=== PATIENT | female | born 1985 | race Caucasian/White ===

== ENCOUNTER 2018-10-02 10:15 | Emergency (ER) | payer BC ==
[2018-10-02] MEDS ORDERED: Sodium Chloride 0.9% 10 ML Syringe FLUSH PRN (10:22)
[2018-10-02] MEDS ORDERED: Sodium Chloride 0.9% 1,000 ML IV SCH ×2 (10:30→11:00)
[2018-10-02] MEDS ORDERED: LORazepam 2 MG/ML SDV IVPUSH ONE (10:46)
[2018-10-02 11:39] LABS: CHLORIDE,CL 103 mmol/L (98-107); SODIUM,NA 140 mmol/L (136-145)
--- NOTE | 2018-10-02 11:58 | EDM.PDOC ---
ED HPI GENERAL MEDICAL PROBLEM - General Chief Complaint: General Stated Complaint: lightheaded, faint, dizziness Time Seen by Provider: 10/02/18 10:40 Source of Information: Reports: Patient History Limitations: Reports: No Limitations - History of Present Illness INITIAL COMMENTS - FREE TEXT/NARRATIVE: Patient is a 33-year-old who is seen in the ER with anxiety lightheadedness near syncopal episode this started earlier today while at work with no apparent cause was brought in by friend for evaluation and treatment Onset: Today Duration: Hour(s):, Getting Worse Location: Reports: Generalized Severity: Mild Improves with: Reports: Medication Worsens with: Reports: None Context: Reports: Other (Exam) Associated Symptoms: Reports: No Other Symptoms 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: Other Medication(s) Other Treatments FOOD SERVICE REPRESENTATIVE: Ativan - Related Data Allergies Allergy/AdvReac Type Severity Reaction Status Date / Time No Known Allergies Allergy Verified 10/02/18 10:19 Home Meds: Home Meds Dextroamphetamine/Amphetamine [Adderall 20 mg Tablet] 1 tab PO DAILY 10/02/18 [ History] LORazepam [Ativan] 0.25 mg PO Q6HR PRN 10/02/18 [History] Sertraline [Zoloft] 50 mg PO DAILY 10/02/18 [History] 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: Psychiatric History: Reports: ADD, Depression - Past Surgical History HEENT Surgical History: Reports: Other (See Below) Other HEENT Surgeries/Procedures: [place] teeth removal GI Surgical History: Reports: Appendectomy Social & Family History - Caffeine Use Caffeine Use: Reports: Energy Drinks Caffeine Use Comment: had 1 energy drink today at 2:00pm ED ROS GENERAL - Review of Systems Review Of Systems: See Below Constitutional: Reports: No Symptoms HEENT: Reports: No Symptoms Respiratory: Reports: No Symptoms Cardiovascular: Reports: No Symptoms Endocrine: Reports: No Symptoms GI/Abdominal: Reports: No Symptoms : Reports: No Symptoms Musculoskeletal: Reports: No Symptoms Skin: Reports: No Symptoms Neurological: Reports: No Symptoms Psychiatric: Reports: No Symptoms Hematologic/Lymphatic: Reports: No Symptoms Immunologic: Reports: No Symptoms ED EXAM, GENERAL - Physical Exam Exam: See Below Exam Limited By: No Limitations General Appearance: Alert, WD/WN, Moderate Distress Ears: Normal External Exam, Normal Canal, Hearing Grossly Normal, Normal TMs Nose: Normal Inspection, Normal Mucosa, No Blood Throat/Mouth: Normal Inspection, Normal Lips, Normal Teeth, Normal Gums, Normal Oropharynx, Normal Voice, No Airway Compromise Head: Atraumatic, Normocephalic Neck: Normal Inspection, Supple, Non-Tender, Full Range of Motion Respiratory/Chest: No Respiratory Distress, Lungs Clear, Normal Breath Sounds, No Accessory Muscle Use, Chest Non-Tender Cardiovascular: Tachycardia GI/Abdominal: Normal Bowel Sounds, Soft, Non-Tender, No Organomegaly, No Distention, No Abnormal Bruit, No Mass (Female) Exam: Deferred Rectal (Female) Exam: Deferred Back Exam: Normal Inspection, Full Range of Motion, NT Extremities: Normal Inspection, Normal Range of Motion, Non-Tender, Normal Capillary Refill, No Pedal Edema Neurological: Alert, Oriented, CN II-XII Intact, Normal Cognition, Normal Gait, Normal Reflexes, No Motor/Sensory Deficits Psychiatric: Anxious Skin Exam: Warm, Dry, Intact, Normal Color, No Rash Lymphatic: No Adenopathy Course - Vital Signs Last Recorded V/S: Last Vital Signs Temp 97.8 F 10/02/18 10:15 Pulse 95 10/02/18 11:15 Resp 18 10/02/18 11:15 BP 126/82 10/02/18 11:15 Pulse Ox 100 10/02/18 11:15 - Orders/Labs/Meds Orders: Active Orders 24 hr Category Date Time Status Peripheral IV Care [RC] . DIRECTED Care 10/02/18 10:22 Active ABG [BLOOD GAS ARTERIAL] [BG] Stat Lab 10/02/18 10:53 Ordered Sodium Chloride 0.9% @ 150 MLS/HR (1000ml) Med 10/02/18 11:00 Ordered Sodium Chloride 0.9% [Normal Saline] 1,000 ml IV ASDIRECTED Sodium Chloride 0.9% [Normal Saline] 1,000 ml Med 10/02/18 10:30 Active IV ASDIRECTED Sodium Chloride 0.9% [Saline Flush] Med 10/02/18 10:22 Active 10 ml FLUSH ASDIRECTED PRN Peripheral IV Insertion Adult [OM.PC] Routine Oth 10/02/18 10:22 Ordered Medication Orders Sodium Chloride (Normal Saline) 1,000 mls @ 999 mls/hr IV ASDIRECTED JAIRO Last Admin: 07/20/19 10:32 Dose: 999 mls/hr Sodium Chloride (Normal Saline) 1,000 mls @ 150 mls/hr IV ASDIRECTED JAIRO Sodium Chloride (Saline Flush) 10 ml FLUSH ASDIRECTED PRN PRN Reason: Keep Vein Open Last Admin: 10/02/18 10:51 Dose: 10 ml Labs: Laboratory Tests 10/02/18 10/02/18 10/02/18 Range/Units 10:56 11:05 11:05 WBC 9.4 (4.0-10.2) K/uL RBC 4.59 (3.77-5.09) M/uL Hgb 14.3 (11.7-15.5) g/dL Hct 42.2 (34.0-46.0) % MCV 91.9 (84.0-98.0) fL MCH 31.2 (28.2-33.3) pg MCHC 33.9 (31.7-36.0) g/dL RDW 13.4 (11.2-14.1) % Plt Count 325 (150-350) K/uL Neut % (Auto) 76.6 (45.0-80.0) % Lymph % (Auto) 15.3 (10.0-50.0) % [place] % (Auto) 7.7 (2.0-14.0) % Eos % (Auto) 0.2 (0.0-5.0) % Baso % (Auto) 0.2 (0.0-2.0) % Neut # (Auto) 7.21 H (1.40-7.00) K/uL Lymph # (Auto) 1.44 (0.50-3.50) K/uL [place] # (Auto) 0.73 (0.00-1.00) K/uL Eos # (Auto) 0.02 (0.00-0.50) K/uL Baso # (Auto) 0.02 (0.00-0.20) K/uL Sodium 140 (136-145) mmol/L Potassium 3.5 (3.5-5.1) mmol/L Chloride 103 (98-107) mmol/L Carbon Dioxide 25.7 (21.0-32.0) mmol/L BUN 15 (7-18) mg/dL Creatinine 0.71 (0.51-1.17) mg/dL Est Cr Clr Drug Dosing TNP Estimated GFR (MDRD) > 60 mL/min Glucose 104 (74-106) mg/dL Calcium 9.8 (8.5-10.1) mg/dL Total Bilirubin 0.3 (0.2-1.0) mg/dL AST 19 (15-37) U/L ALT 30 (12-78) U/L Alkaline Phosphatase 59 (46-116) IU/L Total Protein 7.6 (6.4-8.2) g/dL Albumin 4.1 (3.4-5.0) g/dL TSH, Ultra Sensitive (0.358-3.740) mIU/mL Specimen Type Urinvoid Urine Color Light yellow Urine Appearance Clear Urine pH 7.0 (5.0-9.0) Ur Specific [place] <= 1.005 (1.005-1.030) Urine Protein Negative (NEGATIVE) mg/dL Urine Glucose (UA) Negative (NEGATIVE) mg/dL Urine Ketones Negative (NEGATIVE) mg/dL Urine Occult Blood Trace-intact H (NEGATIVE) Urine Nitrite Negative (NEGATIVE) Urine Bilirubin Negative (NEGATIVE) Urine Urobilinogen 0.2 (0.2-1.0) E.U./dL Ur Leukocyte Esterase Negative (NEGATIVE) Urine RBC 0-5 /HPF Urine WBC 0-5 /HPF Ur Epithelial Cells Few /LPF Urine Bacteria Rare (NONE TO FEW) /HPF 10/02/18 Range/Units 11:05 WBC (4.0-10.2) K/uL RBC (3.77-5.09) M/uL Hgb (11.7-15.5) g/dL Hct (34.0-46.0) % MCV (84.0-98.0) fL MCH (28.2-33.3) pg MCHC (31.7-36.0) g/dL RDW (11.2-14.1) % Plt Count (150-350) K/uL Neut % (Auto) (45.0-80.0) % Lymph % (Auto) (10.0-50.0) % [place] % (Auto) (2.0-14.0) % Eos % (Auto) (0.0-5.0) % Baso % (Auto) (0.0-2.0) % Neut # (Auto) (1.40-7.00) K/uL Lymph # (Auto) (0.50-3.50) K/uL [place] # (Auto) (0.00-1.00) K/uL Eos # (Auto) (0.00-0.50) K/uL Baso # (Auto) (0.00-0.20) K/uL Sodium (136-145) mmol/L Potassium (3.5-5.1) mmol/L Chloride (98-107) mmol/L Carbon Dioxide (21.0-32.0) mmol/L BUN (7-18) mg/dL Creatinine (0.51-1.17) mg/dL Est Cr Clr Drug Dosing Estimated GFR (MDRD) mL/min Glucose (74-106) mg/dL Calcium (8.5-10.1) mg/dL Total Bilirubin (0.2-1.0) mg/dL AST (15-37) U/L ALT (12-78) U/L Alkaline Phosphatase (46-116) IU/L Total Protein (6.4-8.2) g/dL Albumin (3.4-5.0) g/dL TSH, Ultra Sensitive 3.221 (0.358-3.740) mIU/mL Specimen Type Urine Color Urine Appearance Urine pH (5.0-9.0) Ur Specific [place] (1.005-1.030) Urine Protein (NEGATIVE) mg/dL Urine Glucose (UA) (NEGATIVE) mg/dL Urine Ketones (NEGATIVE) mg/dL Urine Occult Blood (NEGATIVE) Urine Nitrite (NEGATIVE) Urine Bilirubin (NEGATIVE) Urine Urobilinogen (0.2-1.0) E.U./dL Ur Leukocyte Esterase (NEGATIVE) Urine RBC /HPF Urine WBC /HPF Ur Epithelial Cells /LPF Urine Bacteria (NONE TO FEW) /HPF Meds: Medications Generic Name Dose Route Start Last Admin Trade Name Freq PRN Reason Stop Dose Admin Sodium Chloride 1,000 mls @ 999 mls/hr 10/02/18 10:30 10/02/18 10:32 Normal Saline IV 999 mls/hr ASDIRECTED JAIRO Administration Sodium Chloride 1,000 mls @ 150 mls/hr 10/02/18 11:00 Normal Saline IV ASDIRECTED JAIRO Sodium Chloride 10 ml 10/02/18 10:22 10/02/18 10:51 Saline Flush FLUSH 10 ml ASDIRECTED PRN Administration Keep Vein Open Discontinued Medications Generic Name Dose Route Start Last Admin Trade Name Priyank PRN Reason Stop Dose Admin Lorazepam 1 mg 10/02/18 10:46 10/02/18 10:50 Ativan IVPUSH 10/02/18 10:47 1 mg ONETIME ONE Administration Departure - Departure Time of Disposition: 11:54 Disposition: Home, Self-Care 01 Condition: Good Clinical Impression: Anxiety and depression - Discharge Information *PRESCRIPTION DRUG MONITORING PROGRAM REVIEWED*: No *COPY OF PRESCRIPTION DRUG MONITORING REPORT IN PATIENT ASHLEY: No Referrals: Nu Goddard BRIDGE ENGINEER [Primary Care Provider] - Care Plan Goals: Patient is seen at this time she was lightheaded and near syncopal episodes crying appeared very anxious she has history of anxiety/depression she's been on Zoloft 50 mg for about 7-8 months and takes Ativan had order a milligram when necessary at this time I felt that she was having an anxiety attack a placed her on a rebreathing her CO2 then after a few minutes her pulse came down heart rate came down we went ahead and gave her 1 mg of Ativan which helped her tremendously at this time I feel that we need to go up on her Zoloft 200 mg and increase her Ativan to half a milligrams to 1 mg by mouth when necessary please send a copy of this to Nu - My Orders Last 24 Hours: My Active Orders 10/02/18 10:22 Peripheral IV Care [RC] . DIRECTED Sodium Chloride 0.9% [Saline Flush] 10 ml FLUSH ASDIRECTED PRN Peripheral IV Insertion Adult [OM.PC] Routine 10/02/18 10:30 Sodium Chloride 0.9% [Normal Saline] 1,000 ml IV ASDIRECTED 10/02/18 10:53 ABG [BLOOD GAS ARTERIAL] [BG] Stat 10/02/18 11:00 Sodium Chloride 0.9% @ 150 MLS/HR (1000ml) Sodium Chloride 0.9% [Normal Saline] 1,000 ml IV ASDIRECTED - Assessment/Plan Last 24 Hours: My Active Orders 10/02/18 10:22 Peripheral IV Care [RC] . DIRECTED Sodium Chloride 0.9% [Saline Flush] 10 ml FLUSH ASDIRECTED PRN Peripheral IV Insertion Adult [OM.PC] Routine 10/02/18 10:30 Sodium Chloride 0.9% [Normal Saline] 1,000 ml IV ASDIRECTED 10/02/18 10:53 ABG [BLOOD GAS ARTERIAL] [BG] Stat 10/02/18 11:00 Sodium Chloride 0.9% @ 150 MLS/HR (1000ml) Sodium Chloride 0.9% [Normal Saline] 1,000 ml IV ASDIRECTED
== END 2018-10-02 12:20 | disposition home or self-care (01) ==
LOC: LL.ED 10:15
DX: F41.9 Anxiety disorder, unspecified (principal); F32.9 Major depressive disorder, single episode, unspecified
CPT/HCPCS: 36415; 80053; 81001; 84443; 85025; 96361; 96374; 99285; J2060; J7030

== ENCOUNTER 2019-08-21 13:23 | Emergency (ER) | payer BC ==
[2019-08-21 13:50] VITALS: BP 127/83; PULSE 86
--- NOTE | 2019-08-21 13:52 | EDM.PDOC ---
ED HPI GENERAL MEDICAL PROBLEM - General Chief Complaint: General Stated Complaint: anxiety Time Seen by Provider: 08/21/19 13:30 Source of Information: Reports: Patient History Limitations: Reports: No Limitations - History of Present Illness INITIAL COMMENTS - FREE TEXT/NARRATIVE: She presents to the emergency department complaining of a panic attack. She states her heart is been racing, her blood pressures have been high and she feels like she is going to . She does report some tightness in her chest earlier, although that is also improving. Her symptoms started about 2 hours ago. She did take a Xanax at home and feels things have improved. She has a history of panic attacks in the past. Last significant attack was 11 months ago. She does take Klonopin daily and Xanax as needed. 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 She denies any more acute or specific trigger today. 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 Denies: Wheezing, Cough Cardiovascular: Reports: Other (Rapid heart rate). Denies: Chest Pain, Palpitations Endocrine: Reports: No Symptoms GI/Abdominal: Denies: Abdominal Pain, Nausea, Vomiting : Denies: Dysuria, Frequency, Urgency Neurological: Denies: Confusion, Dizziness, Headache, Numbness, Seizure, Syncope , Trouble Speaking Psychiatric: Reports: Anxiety ED EXAM, GENERAL - Physical Exam Exam: See Below Exam Limited By: No Limitations General Appearance: Alert, WD/WN Ears: Normal External Exam, Normal Canal, Hearing Grossly Normal, Normal TMs Nose: Normal Inspection, Normal Mucosa Throat/Mouth: Normal Inspection, Normal Teeth, Normal Gums, Normal Oropharynx, Normal Voice Head: Atraumatic, Normocephalic Neck: Normal Inspection, Non-Tender. No: Lymphadenopathy (L), Lymphadenopathy ( R) Respiratory/Chest: No Respiratory Distress, Lungs Clear, Normal Breath Sounds, No Accessory Muscle Use, Respiratory Distress Cardiovascular: Normal Peripheral Pulses, Regular Rate, Rhythm, No Edema, No Murmur Neurological: Alert, Oriented, CN II-XII Intact, Normal Cognition Skin Exam: Warm, Dry Course - Vital Signs Last Recorded V/S: Last Vital Signs Temp 36.8 C 08/21/19 13:36 Pulse 93 08/21/19 13:36 Resp 22 H 08/21/19 13:36 BP 144/81 H 08/21/19 13:36 Pulse Ox 99 08/21/19 13:36 Departure - Departure Time of Disposition: 13:50 Disposition: Home, Self-Care 01 Clinical Impression: Panic attack, Anxiety - Discharge Information *PRESCRIPTION DRUG MONITORING PROGRAM REVIEWED*: Not Applicable *COPY OF PRESCRIPTION DRUG MONITORING REPORT IN PATIENT ASHLEY: Not Applicable Instructions: Panic Attack, [id number] Referrals: Nu Goddard NP [Primary Care Provider] - Forms: ED Department Discharge, ED Return to Work/School Form Additional Instructions: Patient is reassured that she does appear to be having a panic attack and there is no life-threatening condition. While in the emergency department she was feeling much better. She will take another Xanax when she goes home. Follow-up as needed. Sepsis Event Note - Evaluation Sepsis Screening Result: No Definite Risk - Focused Exam Vital Signs: Vital Signs Temp Pulse Resp BP Pulse Ox 08/21/19 13:36 36.8 C 93 22 H 144/81 H 99 Date Exam was Performed: 08/21/19 Time Exam was Performed: 13:47
== END 2019-08-21 14:05 | disposition home or self-care (01) ==
LOC: LL.ED 13:23
DX: F41.0 Panic disorder [episodic paroxysmal anxiety] (principal); F32.9 Major depressive disorder, single episode, unspecified; F98.8 Other specified behavioral and emotional disorders with onset usually occurring in childhood and adolescence; Z79.899 Other long term (current) drug therapy
CPT/HCPCS: 99283

== ENCOUNTER 2020-07-21 11:17 | Emergency (ER) | payer BC ==
[2020-07-21] MEDS ORDERED: LORazepam 2 MG/ML SDV IVPUSH ONE (11:42)
[2020-07-21] MEDS ORDERED: Sodium Chloride 0.9% 10 ML Syringe FLUSH PRN (11:43)
[2020-07-21 12:12] LABS: CHLORIDE,CL 102 mmol/L (98-107); SODIUM,NA 140 mmol/L (136-145)
--- NOTE | 2020-07-21 12:25 | EDM.PDOC ---
ED HPI GENERAL MEDICAL PROBLEM - General Chief Complaint: Neurological Problem Stated Complaint: left dilated pupil Time Seen by Provider: 07/21/20 11:40 Source of Information: Reports: Patient History Limitations: Reports: No Limitations - History of Present Illness INITIAL COMMENTS - FREE TEXT/NARRATIVE: Patient comes to ER to be evaluated after noticing that her left pupil was widened compared to right. No vision change. No history of similar issues in past. Has history of chronic anxiety and panic disorder. Is feeling very anxious since noticing the pupil size difference. Had mild tingling of left arm at one point after noticing eye issue. No focal weakness/other focal neuro complaints. Did take two Midol tabs earlier today for menstrual cramping but has taken that before without issue. Has had a few cups of coffee, also not unusual for her. No other acute changes noted. No history of migraines/atypical migraines. No other drug/chemical exposure. 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 Denies: Dental Pain, Ear Discharge, Ear Pain, Eye Discharge, Eye Pain, Nose Pain, Rhinitis, Sinus Problem, Throat Pain, Throat Swelling, Vertigo, Vision Change Respiratory: Reports: No Symptoms Cardiovascular: Reports: No Symptoms Endocrine: Reports: No Symptoms GI/Abdominal: Reports: No Symptoms : Reports: No Symptoms Musculoskeletal: Reports: No Symptoms Skin: Reports: No Symptoms Neurological: Reports: Other (tingling left arm/shoulder) Psychiatric: Reports: Anxiety Hematologic/Lymphatic: Reports: No Symptoms Immunologic: Reports: No Symptoms ED EXAM, GENERAL - Physical Exam Exam: See Below Exam Limited By: No Limitations General Appearance: Alert, Anxious Eye Exam: Bilateral Eye: EOMI, Other (Both pupils minimally reactive to light, left pupil fully blown, right pupil 6mm) Ears: Normal External Exam, Hearing Grossly Normal Nose: No: Nasal Deformity, Nasal Swelling, Nasal Drainage Throat/Mouth: Normal Lips, Normal Voice, No Airway Compromise Head: Atraumatic, Normocephalic Neck: Supple, Full Range of Motion Respiratory/Chest: No Respiratory Distress Cardiovascular: Regular Rate, Rhythm GI/Abdominal: Soft Extremities: Normal Inspection, Normal Range of Motion, Non-Tender, No Pedal Edema, Normal Capillary Refill Neurological: Alert, Oriented, Other (equal tone/strength bilaterally upper and lower limbs) Psychiatric: Anxious Skin Exam: Warm, Dry, Intact, Normal Color Course - Vital Signs Last Recorded V/S: Last Vital Signs Temp 37.6 C 07/21/20 11:30 Pulse 84 07/21/20 11:30 Resp 20 07/21/20 11:30 BP 158/90 H 07/21/20 11:30 Pulse Ox 100 07/21/20 11:30 - Orders/Labs/Meds Orders: Active Orders 24 hr Category Date Time Status Head wo Cont [CT] Stat Exams 07/21/20 11:38 Taken Sodium Chloride 0.9% [Saline Flush] Med 07/21/20 11:43 Active 10 ml FLUSH ASDIRECTED PRN Saline Lock Insert [OM.PC] Routine Oth 07/21/20 11:43 Ordered Medication Orders Sodium Chloride (Sodium Chloride 0.9% 10 Ml Syringe) 10 ml FLUSH ASDIRECTED PRN PRN Reason: Keep Vein Open Labs: Laboratory Tests 07/21/20 07/21/20 Range/Units 11:45 11:45 WBC 12.3 H (4.0-10.2) K/uL RBC 4.63 (3.77-5.09) M/uL Hgb 14.1 (11.7-15.5) g/dL Hct 42.5 (34.0-46.0) % MCV 91.8 (84.0-98.0) fL MCH 30.5 (28.2-33.3) pg MCHC 33.2 (31.7-36.0) g/dL RDW 12.7 (11.2-14.1) % Plt Count 333 (150-350) K/uL Neut % (Auto) 58.4 (45.0-80.0) % Lymph % (Auto) 27.5 (10.0-50.0) % [place] % (Auto) 9.6 (2.0-14.0) % Eos % (Auto) 4.3 (0.0-5.0) % Baso % (Auto) 0.2 (0.0-2.0) % Neut # (Auto) 7.20 H (1.40-7.00) K/uL Lymph # (Auto) 3.38 (0.50-3.50) K/uL [place] # (Auto) 1.18 H (0.00-1.00) K/uL Eos # (Auto) 0.53 H (0.00-0.50) K/uL Baso # (Auto) 0.02 (0.00-0.20) K/uL Sodium 140 (136-145) mmol/L Potassium 3.3 L (3.5-5.1) mmol/L Chloride 102 (98-107) mmol/L Carbon Dioxide 24.2 (21.0-32.0) mmol/L BUN 13 (7-18) mg/dL Creatinine 0.75 (0.51-1.17) mg/dL Est Cr Clr Drug Dosing TNP Estimated GFR (MDRD) > 60 mL/min Glucose 97 (70-99) mg/dL Calcium 8.9 (8.5-10.1) mg/dL Magnesium 2.1 (1.8-2.4) mg/dL Total Bilirubin 0.3 (0.2-1.0) mg/dL AST 22 (15-37) U/L ALT 36 (12-78) U/L Alkaline Phosphatase 62 (46-116) IU/L Total Protein 7.6 (6.4-8.2) g/dL Albumin 4.3 (3.4-5.0) g/dL Meds: Medications Generic Name Dose Route Start Last Admin Trade Name Freq PRN Reason Stop Dose Admin Sodium Chloride 10 ml 07/21/20 11:43 Sodium Chloride 0.9% 10 Ml Syringe FLUSH ASDIRECTED PRN Keep Vein Open Discontinued Medications Generic Name Dose Route Start Last Admin Trade Name Priyank PRN Reason Stop Dose Admin Lorazepam 0.5 mg 07/21/20 11:42 07/21/20 11:51 Lorazepam 2 Mg/Ml Sdv IVPUSH 07/21/20 11:43 0.5 mg ONETIME ONE Administration - Re-Assessments/Exams Free Text/Narrative Re-Assessment/Exam: 07/21/20 12:20 Patient received Ativan due to elevated anxiety levels/feeling like she may have panic attack. Underwent noncontrast head CT. Currently waiting for Radiology results. Labs showed mild elevation wbc which may be stress reaction/panic related. No evidence of acute infection at this time. Mild decrease K. Plan will be to contact civil engineering professional Ophthalmology once CT results obtained. Free Text/Narrative Re-Assessment/Exam: 07/21/20 12:55 Anxiety improved post-ativan. CT study results mention focal extra-axial high attenuation change overlying the left frontal lobe on image 36 which could be vascular issue, tiny meningioma. No midline shift, mass effect or infarct noted. Recommended non-emergent MRI with IV contrast for better characterization. Results discussed with patient. At this point in time she is willing to go to [place] where imaging could be performed today. Will give her option to wait until next week to follow up with PCP and have imaging done at that time if she decides to change her mind and wait. If she chooses that option she is advised to return for recheck if any new sudden acute changes develop. Accepting MD is Gabriel. Intraocular pressure can be measured at [facility] and Ophthalmology consulted if needed. Going by private vehicle. Recommended patient to increase potassium intake in diet as she is mildly low. Departure - Departure Time of Disposition: 13:01 Disposition: DC/Tfer to Acute Hospital 02 Condition: Good Clinical Impression: Anxiety, Hypokalemia, Pupil asymmetry - Discharge Information *PRESCRIPTION DRUG MONITORING PROGRAM REVIEWED*: Not Applicable *COPY OF PRESCRIPTION DRUG MONITORING REPORT IN PATIENT ASHLEY: Not Applicable Forms: ED Department Discharge Additional Instructions: Drive to the ER at [facility] at the [facility]. We did discuss your situation with . They are expecting you. You can have your eye pressure checked at their facility and discuss having the MRI study to look more closely at that spot they noticed on the left side. Further follow up as needed as advised by Nikko. Sepsis Event Note (ED) - Focused Exam Vital Signs: Vital Signs Temp Pulse Resp BP Pulse Ox 07/21/20 11:30 37.6 C 84 20 158/90 H 100 - My Orders Last 24 Hours: My Active Orders 07/21/20 11:38 Head wo Cont [CT] Stat 07/21/20 11:43 Sodium Chloride 0.9% [Saline Flush] 10 ml FLUSH ASDIRECTED PRN Saline Lock Insert [OM.PC] Routine - Assessment/Plan Last 24 Hours: My Active Orders 07/21/20 11:38 Head wo Cont [CT] Stat 07/21/20 11:43 Sodium Chloride 0.9% [Saline Flush] 10 ml FLUSH ASDIRECTED PRN Saline Lock Insert [OM.PC] Routine
== END 2020-07-21 13:20 ==
LOC: LL.ED 11:17
DX: F41.9 Anxiety disorder, unspecified (principal); E87.6 Hypokalemia; H57.89 Other specified disorders of eye and adnexa
CPT/HCPCS: 70450; 80053; 83735; 85025; 96374; 99284; 99285-25; J2060